=== PATIENT | female | born 1950 | race Caucasian/White ===

== ENCOUNTER → 2019-04-18 06:49 | Outpatient (CLI) | payer MEDICARE, SELFPAY ==
--- NOTE | ~2019-04-18 | DEXA_ITS ---
Bone Density Report Name: Margareth Araiza Age: 69 Sex: Female Ethnicity: White Date of : 1950 Indication: osteopenia; prior fracture; hysterectomy; postmenopausal Referring Provider: Mariya Dale Study: Bone densitometry was performed. Exam Date: April 18, 2019 Accession number: [id number] Bone Density: Region BMD T-score Z-score Classification AP Spine (L1, L3, L4) 1.111 0.5 2.7 Normal Femoral Neck (Left) 0.711 -1.2 0.6 Osteopenia Total Hip (Left) 0.828 -0.9 0.6 Normal Femoral Neck (Right) 0.748 -0.9 0.9 Normal Total Hip (Right) 0.894 -0.4 1.2 Normal Total Hip Mean 0.861 -0.7 0.9 Normal World Health Organization criteria for BMD impression classify patients as: Normal (T-score at or above -1.0), Osteopenia (T-score between -1.0 and -2.5), or Osteoporosis (T-score at or below -2.5). 10-year Fracture Risk(1): Major Osteoporotic Fracture 14% Hip Fracture 1.6% Reported Risk Factors: [place] (), Neck BMD=0.711, BMI=36.2, previous fracture (1) FRAX(R) Version 3.08. Fracture probability calculated for an untreated patient. Fracture probability may be lower if the patient has received treatment. Previous Exams: Region Exam Age BMD T-score BMD Change BMD Change Date g/cm2 vs Baseline vs Previous AP Spine(L1, L3, L4) 04/18/2019 69 1.111 0.5 0.065 0.065 12/03/2015 65 1.046 -0.1 Total Hip(Left) 04/18/2019 69 0.828 -0.9 0.015 0.015 12/03/2015 65 0.813 -1.1 Total Hip(Right) 04/18/2019 69 0.894 -0.4 -0.010 -0.010 12/03/2015 65 0.904 -0.3 *Denotes significance at 95% confidence level, LSC for AP Spine = 0.022 g/cm2, LSC for Total Hip = 0.027 g/cm2 Clinical Information Provided by Patient: Has had a low trauma fracture Has used the following medications: Vitamin D, Calcium Has the following medical conditions: Hysterectomy Patient maximum height was 64 Menopause Age: 49 Drinks caffeinated beverages Onset of menses at age 8 Number of children 4 Impression: The patient has low bone mass, based on the Left Femoral Neck T-score. The patient has an estimated ten-year risk of hip fracture of 1.6% and an estimated ten-year risk of major fracture of 14%, based on the WHO FRAX algorithm. The patient has risk factors, including: previous fracture. No significant bone loss was observed. Discussion: BONE DENSITY IS LOW AT ONE OR MORE SKELETAL SITES. This
--- NOTE | ~2019-04-18 | MM_ITS ---
EXAMINATION: MM screening [facility] BI w yin HISTORY: Screening mammogram TECHNIQUE: Craniocaudal and mediolateral oblique 3-D tomosynthesis images were obtained and synthetic 2-D images were generated. CAD analysis was submitted and interpreted. COMPARISON: 03/10/2018, 12/25/2016, 12/03/2015 bilateral digital screening mammogram examinations BREAST PARENCHYMAL COMPOSITION: There are scattered areas of fibroglandular density. FINDINGS: Mild fibroglandular asymmetry. Benign stable intramammary axillary tail lymph node on the l eft. There is no evidence of suspicious mass, calcification, or architectural distortion to suggest m alignancy in either breast. There has been no suspicious interval change. IMPRESSION: 1. No mammographic evidence of malignancy. 2. Recommend routine screening mammography in one year. BI-RADS Category 2: Benign finding(s). Reviewed, dictated and finalized at location A.
== END ==
PROVIDERS: PCP Family Medicine; Visit Provider Physician Assistant
DX: Z12.31 Encounter for screening mammogram for malignant neoplasm of breast (principal); Z78.0 Asymptomatic menopausal state; M85.852 Other specified disorders of bone density and structure, left thigh
CPT/HCPCS: 77063; 77067; 77080

== ENCOUNTER → 2020-04-04 12:48 | Outpatient (CLI) | payer MEDICARE, SELFPAY ==
--- NOTE | ~2020-04-04 | XR_ITS ---
XR foot RT 2V DATE: 04/04/2020 13:05 INDICATION: Right foot pain TECHNIQUE: AP and lateral views COMPARISON: None FINDINGS: There is diffuse osteopenia. There is hallux valgus and bunion deformity. There is osteoarthritis at the first metatarsophalangeal joint. Plantar calcaneal enthesopathy. There is some soft tissue calcification at the plantar aponeurosis be neath the calcaneal tuberosity. No fracture or dislocation, periosteal reaction or bone destruction. IMPRESSION: Osteopenia Hallux valgus and bunion deformity Osteoarthritis at first metatarsophalangeal joint Plantar calcaneal soft tissue calcification and enthesopathy Reviewed, dictated and finalized at location A. NG CUTTER
== END ==
PROVIDERS: PCP Family Medicine; Visit Provider Family Medicine
DX: M79.671 Pain in right foot (principal); G89.29 Other chronic pain; M85.871 Other specified disorders of bone density and structure, right ankle and foot; M19.071 Primary osteoarthritis, right ankle and foot; M77.31 Calcaneal spur, right foot
CPT/HCPCS: 73620

== ENCOUNTER → 2020-05-22 11:14 | Outpatient (CLI) | payer MEDICARE, SELFPAY ==
--- NOTE | ~2020-05-22 | MM_ITS ---
EXAMINATION: MM screening [facility] BI w yin HISTORY: Screening TECHNIQUE: Craniocaudal and mediolateral oblique 3-D tomosynthesis images were obtained and synthetic 2-D images were generated. CAD analysis was submitted and interpreted. COMPARISON: Comparison to multiple prior studies sequentially, with oldest reviewed study dated 11/09. BREAST PARENCHYMAL COMPOSITION: There are scattered areas of fibroglandular density. FINDINGS: There is no evidence of suspicious mass, calcification, or architectural distortion to sugg est malignancy in either breast. There has been no suspicious interval change. IMPRESSION: 1. No mammographic evidence of malignancy. 2. Recommend routine screening mammography in one year. BI-RADS Category 1: Negative Reviewed, dictated and finalized at location A.
== END ==
PROVIDERS: PCP Family Medicine; Visit Provider Family Medicine
DX: Z12.31 Encounter for screening mammogram for malignant neoplasm of breast (principal)
CPT/HCPCS: 77063; 77067

== ENCOUNTER → 2020-06-25 03:02 | Outpatient (CLI) | payer MEDICARE, SELFPAY ==
[2020-06-25 20:06] LABS: SARS-CoV-2 RNA PCR Negative
== END ==
PROVIDERS: PCP Family Medicine; Visit Provider Internal Medicine Gastroenterology
DX: Z01.812 Encounter for preprocedural laboratory examination (principal); Z20.822 Contact with and (suspected) exposure to COVID-19
CPT/HCPCS: C9803; U0003; U0005

== ENCOUNTER 2020-06-28 02:36 | Day surgery (SDC) | payer MEDICARE, SELFPAY ==
[2020-06-19 10:00] VITALS: BMI 32.5
[2020-06-28 06:26] VITALS: BP 136/80; PULSE 71; RESP 16; TEMP 36.6; O2SAT 95; BMI 33.5
[2020-06-28] MEDS: LACTATED RINGERS 1,000 ML 150 ML IV CONT (06:34)
--- NOTE | 2020-06-28 07:16 | WPDANESEPPF ---
Anes - Initial Pre Proc Eval Procedure: Operation Date: 06/28/20 07:30 Proposed Procedures p Screening Colonoscopy - Edi Soriano MD Date/Time: 06/28/20 07:16 Surgeon: Edi Soriano MD Pre Op Diagnosis: hx of colon ca Patient Data Age: 70 Gender: F Height: 5 ft 4 in Weight: 88.7 kg Last Vital Signs Temp 97.9 F 06/28/20 06:26 Pulse 71 06/28/20 06:26 Resp 16 06/28/20 06:26 BP 136/80 06/28/20 06:26 Pulse Ox 95 06/28/20 06:26 Allergies Allergy/AdvReac Type Severity Reaction Status Date / Time No Known Allergies Allergy Verified 06/28/20 06:25 Home Medications Medication Instructions Recorded Confirmed Type omega-3 fatty acids 1,000 mg 2,000 mg PO DAILY cap 04/14/19 06/19/20 History capsule pravastatin 10 mg tablet See Rx Instructions .ROUTE 05/20/20 06/19/20 Rx .COMPLEX #90 tablet calcium carbonate-vitamin D2 1 tablet PO DAILY 06/19/20 06/19/20 History [Calcium + Vitamin D] glucosamine sulfate [Glucosamine] 500 mg PO DAILY 06/19/20 06/19/20 History naproxen sodium 440 mg PO BID PRN 06/19/20 06/19/20 History Patient hx anesthesia problems: none Family hx anesthesia problems: none PMFSH Past Medical History Medical History Hepatitis C antibody test negative (05/19/16) Family History Family History Mother Diabetes mellitus Hypertension Family history of elevated blood lipids Carcinoma of colon Family history of coronary artery disease Father Hypertension Family history of elevated blood lipids Family history of coronary artery disease Acute myocardial infarction Sibling Family history of thyroid disease Family history of malignant neoplasm Social History Social History Smoking packs per day: 0.5 Smoking cigarettes per day: 10.0 Years smoked: 4 Smoking pack-years: 2.00 Second hand tobacco smoke exposure: No Smoking end date: 02/09/72 Alcohol intake: current Drinks per week: 3 Substance use: never Substance use type: does not use Living arrangements: with family Gender identity (if verbalized by the patient): Female Spiritual care concerns: No Anes - Eval Final PreProcedure Day of Procedure 06/28/20 07:16 Patient weight: obese Heart: regular rate and rhythm Lungs: clear to auscultation Airway: Mallampati scale class II Neurological: alert and oriented Last oral intake: >/= 8 hours ASA classification: II Emergent: no Anesthetic plan: proceed Anesthesia type and monitoring: general GIVS and standard monitoring Informed Consent: The patient's anesthetic plan and its attendant risks and benefits were discussed with the patient/family/POA. Questions were solicited and answers provided to the satisfaction of the patient/family/POA.
--- NOTE | 2020-06-28 07:26 | PM.HPGS ---
History of Present Illness History of Present Illness Consent: Risks, benefits, and alternatives have been discussed and questions answered. Patient agrees to proceed with procedure. Chief complaint: hx of colon ca Narrative: Margareth Araiza is a 70 year old female with last colonoscopy 2015, mother had colon cancer Review of Systems Constitutional: Constitutional: Denies headache(s) and Denies weakness Eyes: Eyes: Denies blurry vision ENT: Reports Normal hearing present, Denies headache(s) and Denies neck pain Cardiovascular: Cardiovascular: Denies chest pain and Denies dyspnea Respiratory: Respiratory: Denies dyspnea Gastrointestinal: Gastrointestinal: Reports no additional gastrointestinal complaints Genitourinary: Genitourinary: Denies dysuria Musculoskeletal: Musculoskeletal: Denies neck pain Integumentary/Breasts: Skin/Breast: Denies dry skin Neurologic: Reports Normal hearing present, Denies headache(s) and Denies weakness Psychiatric: Psychiatric: Denies anxiety Endocrine: Endocrine: Denies change in body appearance Hematologic/Lymphatic: Hematologic/Lymphatic: Denies easy bleeding Allergic/Immunologic: Allergic/Immunologic: Denies urticaria PMF Past Medical History Medical History (Updated 06/28/20 @ 07:26 by Edi Soriano MD) Family history of colon cancer in mother Hepatitis C antibody test negative (05/19/16) Family History Family History (Reviewed 06/13/20 @ 11:51 by Rachael Beard [facility]) Mother Diabetes mellitus Hypertension Family history of elevated blood lipids Carcinoma of colon Family history of coronary artery disease Father Hypertension Family history of elevated blood lipids Family history of coronary artery disease Acute myocardial infarction Sibling Family history of thyroid disease Family history of malignant neoplasm Social History Social History (Reviewed 06/13/20 @ 11:51 by Rachael Beard [facility]) Smoking packs per day: 0.5 Smoking cigarettes per day: 10.0 Years smoked: 4 Smoking pack-years: 2.00 Second hand tobacco smoke exposure: No Smoking end date: 02/09/72 Alcohol intake: current Drinks per week: 3 Substance use: never Substance use type: does not use Living arrangements: with family Gender identity (if verbalized by the patient): Female Spiritual care concerns: No Meds Home Medications and Allergies Home Medications Medication Instructions Recorded Confirmed Type omega-3 fatty acids 1,000 mg 2,000 mg PO DAILY cap 04/14/19 06/19/20 History capsule pravastatin 10 mg tablet See Rx Instructions .ROUTE 05/20/20 06/19/20 Rx .COMPLEX #90 tablet calcium carbonate-vitamin D2 1 tablet PO DAILY 06/19/20 06/19/20 History [Calcium + Vitamin D] glucosamine sulfate [Glucosamine] 500 mg PO DAILY 06/19/20 06/19/20 History naproxen sodium 440 mg PO BID PRN 06/19/20 06/19/20 History Allergies Allergy/AdvReac Type Severity Reaction Status Date / Time No Known Allergies Allergy Verified 06/28/20 06:25 Vital Signs Vital Signs - 24 hr 06/28/20 06:26 Temperature 97.9 F Pulse Rate 71 Respiratory Rate 16 Blood Pressure 136/80 Pulse Oximetry 95 Exam Const: General: comfortable and no acute distress HENMT: General nose exam: Normal nares present Eyes: General: appearance normal, both eyes and all related structures Neck: Neck: no JVD Resp: Auscultation: clear to auscultation bilaterally Cardio: Rate: regular rate Rhythm: regular rhythm GI: Inspection: non-distended GI Palp: Yes Soft to palpation Skin: General skin exam: normal color Neuro: General: gait normal Speech: normal speech Extrem: General: normal to inspection Psych: Mental Status: mental status grossly normal Assessment and Plan Assessment and plan (1) Family history of colon cancer in mother: Code(s): Z80.0 - Family history of malignant neoplasm of digestive organs Status: Acute
[2020-06-28 07:47] VITALS: BP 96/50; PULSE 54; RESP 16; O2SAT 95
[2020-06-28 07:57] VITALS: BP 99/69; PULSE 58; RESP 18; O2SAT 96
[2020-06-28 08:07] VITALS: BP 122/68; PULSE 53; RESP 16; O2SAT 96
== END 2020-06-28 08:25 | disposition home or self-care (01) ==
PROVIDERS: PCP Family Medicine; Visit Provider Internal Medicine Gastroenterology
PROC: 0DJD8ZZ Inspection of Lower Intestinal Tract, Via Natural or Artificial Opening Endoscopic (ICD-10-PCS; CPT 45378; principal; 2020-06-28 07:30)
DX: Z12.11 Encounter for screening for malignant neoplasm of colon (principal); K57.30 Diverticulosis of large intestine without perforation or abscess without bleeding; K64.8 Other hemorrhoids; Z80.0 Family history of malignant neoplasm of digestive organs; Z87.891 Personal history of nicotine dependence; E66.9 Obesity, unspecified; Z68.33 Body mass index [BMI] 33.0-33.9, adult
CPT/HCPCS: G0105; C9803; J2001; J2704; J7120; U0003; U0005

== ENCOUNTER → 2021-04-24 09:06 | Outpatient (CLI) | payer MEDICARE, SELFPAY ==
--- NOTE | ~2021-04-24 | XR_ITS ---
EXAMINATION: XR finger 2nd RT min 2V DATE: 04/24/2021 09:26 INDICATION: Pain at the right second digit TECHNIQUE: Dorsal palmar, lateral and 2 oblique views of the right second digit were obtained COMPARISON: None FINDINGS: Bone alignment is normal. No fracture. Polyarticular osteoarthritis, moderate severity at the right s econd proximal and distal interphalangeal joints, both with prominent heterotopic ossicles at the yesika siri/ulnar sides of the joint spaces and with tiny heterotopic ossicle at the radial aspect of the dis tylor interphalangeal joint line. Additional mild osteoarthritis at the triscaphe, first carpometacarpa l and a few of the remaining visualized interphalangeal joints. IMPRESSION: 1. Polyarticular osteoarthritis, moderate severity at the right second proximal and distal interphala ngeal joints Reviewed, dictated and finalized at location A. IMPRESSION: 1. Polyarticular osteoarthritis, moderate severity at the right second proximal and distal interphalangeal joints
== END ==
PROVIDERS: PCP Family Medicine; Visit Provider Physician Assistant
DX: M19.041 Primary osteoarthritis, right hand (principal)
CPT/HCPCS: 73140

== ENCOUNTER → 2021-06-18 13:44 | Outpatient (CLI) | payer MEDICARE, SELFPAY ==
--- NOTE | ~2021-06-18 | MM_ITS ---
EXAMINATION: MM screening [facility] BI w yin HISTORY: Screening TECHNIQUE: Craniocaudal and mediolateral oblique 3-D tomosynthesis images were obtained and synthetic 2-D images were generated. CAD analysis was submitted and interpreted. COMPARISON: Comparison to multiple prior studies sequentially, with oldest reviewed study dated 11/09. BREAST PARENCHYMAL COMPOSITION: There are scattered areas of fibroglandular density. FINDINGS: There is no evidence of suspicious mass, calcification, or architectural distortion to sugg est malignancy in either breast. There has been no suspicious interval change. IMPRESSION: 1. No mammographic evidence of malignancy. 2. Recommend routine screening mammography in one year. BI-RADS Category 1: Negative Reviewed, dictated and finalized at location A.
--- NOTE | ~2021-06-18 | DEXA_ITS ---
Bone Density Report Name: CASPER OAKLEY Age: 71 Sex: Female Ethnicity: White Date of : 1950 Indication: postmenopausal; screening for osteoporosis; height loss; prior fracture; hysterectomy; Referring Provider: Mariya Dale Study: Bone densitometry was performed. Exam Date: June 18, 2021 Accession number: [id number] Bone Density: Region BMD T-score Z-score Classification AP Spine (L1, L3, L4) 1.141 0.8 3.1 Normal Femoral Neck (Left) 0.678 -1.5 0.4 Osteopenia Total Hip (Left) 0.835 -0.9 0.8 Normal Femoral Neck (Right) 0.761 -0.8 1.2 Normal Total Hip (Right) 0.884 -0.5 1.2 Normal Total Hip Mean 0.860 -0.7 1.0 Normal World Health Organization criteria for BMD impression classify patients as: Normal (T-score at or above -1.0), Osteopenia (T-score between -1.0 and -2.5), or Osteoporosis (T-score at or below -2.5). 10-year Fracture Risk(1): Major Osteoporotic Fracture 16% Hip Fracture 2.5% Reported Risk Factors: [place] (), Neck BMD=0.678, BMI=35.4, previous fracture (1) FRAX(R) Version 3.08. Fracture probability calculated for an untreated patient. Fracture probability may be lower if the patient has received treatment. Previous Exams: Region Exam Age BMD T-score BMD Change BMD Change Date g/cm2 vs Baseline vs Previous AP Spine(L1, L3, L4) 06/18/2021 71 1.141 0.8 0.095* 0.030 04/18/2019 69 1.111 0.5 0.065 0.065 12/03/2015 65 1.046 -0.1 Total Hip(Left) 06/18/2021 71 0.835 -0.9 0.021 0.007 04/18/2019 69 0.828 -0.9 0.015 0.015 12/03/2015 65 0.813 -1.1 Total Hip(Right) 06/18/2021 71 0.884 -0.5 -0.019 -0.009 04/18/2019 69 0.894 -0.4 -0.010 -0.010 12/03/2015 65 0.904 -0.3 *Denotes significance at 95% confidence level, LSC for AP Spine = 0.022 g/cm2, LSC for Total Hip = 0.027 g/cm2 Clinical Information Provided by Patient: Has had a low trauma fracture Has used the following medications: Vitamin D, Calcium Has the following medical conditions: Hysterectomy Patient maximum height was 64 Menopause Age: 49 No regular weight bearing exercise Drinks caffeinated beverages Onset of menses at age 8 Number of children 4 Impression: The patient has low bone mass, based on the Left Femoral Neck T-score. The patient has an estimated ten-year risk of hip fracture of 2.5% an
== END ==
PROVIDERS: PCP Family Medicine; Visit Provider Physician Assistant
DX: Z12.31 Encounter for screening mammogram for malignant neoplasm of breast (principal); Z78.0 Asymptomatic menopausal state; M85.852 Other specified disorders of bone density and structure, left thigh
CPT/HCPCS: 77063; 77067; 77080

== ENCOUNTER → 2022-09-10 10:47 | Outpatient (CLI) | payer MEDICARE, SELFPAY ==
--- NOTE | ~2022-09-10 | MM_ITS ---
EXAMINATION: MM screening [facility] BI w yin HISTORY: Screening mammogram TECHNIQUE: Craniocaudal and mediolateral oblique 3-D tomosynthesis images were obtained and synthetic 2-D images were generated. CAD analysis was submitted and interpreted. COMPARISON: 06/18/2021, 05/22/2020, 04/18/2019 bilateral screening mammogram examinations BREAST PARENCHYMAL COMPOSITION: The breasts are almost entirely fatty. FINDINGS: There is no evidence of suspicious mass, calcification, or architectural distortion to sugg est malignancy in either breast. There has been no suspicious interval change. IMPRESSION: 1. No mammographic evidence of malignancy. 2. Recommend routine screening mammography in one year. BI-RADS Category 1: Negative Reviewed, dictated and finalized at location A.
== END ==
PROVIDERS: PCP Family Medicine; Visit Provider Family Medicine
DX: Z12.31 Encounter for screening mammogram for malignant neoplasm of breast (principal)
CPT/HCPCS: 77063; 77067

== ENCOUNTER 2023-12-28 11:49 | Outpatient (CLI) | payer MEDICARE, SELFPAY ==
--- NOTE | ~2023-12-28 | DEXA_ITS ---
Bone Density Report Name: CASPER OAKLEY Age: 73 Sex: Female Ethnicity: White Date of : 1950 Indication: postmenopausal; screening for osteoporosis; hysterectomy; Referring Provider: Pia Thomas Study: Bone densitometry was performed. Exam Date: December 28, 2023 Accession number: [id number] Bone Density: Region BMD T-score Z-score Classification AP Spine(L1, L2, L4) 1.153 1.1 3.5 Normal Femoral Neck (Left) 0.665 -1.7 0.5 Osteopenia Total Hip (Left) 0.831 -0.9 0.9 Normal Femoral Neck (Right) 0.710 -1.3 0.9 Osteopenia Total Hip (Right) 0.860 -0.7 1.2 Normal Femoral Neck Mean 0.688 -1.5 0.7 Osteopenia Total Hip Mean 0.846 -0.8 1.0 Normal World Health Organization criteria for BMD impression classify patients as: Normal (T-score at or above -1.0), Osteopenia (T-score between -1.0 and -2.5), or Osteoporosis (T-score at or below -2.5). 10-year Fracture Risk(1): Major Osteoporotic Fracture 11% Hip Fracture 2.3% Reported Risk Factors: [place] (), Neck BMD=0.665, BMI=34.1 (1) FRAX(R) Version 3.08. Fracture probability calculated for an untreated patient. Fracture probability may be lower if the patient has received treatment. Clinical Information Provided by Patient: Has used the following medications: Vitamin D, Calcium Has the following medical conditions: Hysterectomy Patient maximum height was 64 Menopause Age: 48 Drinks caffeinated beverages Onset of menses at age 11 Number of children 4 Impression: The patient has low bone mass, based on the Left Femoral Neck T-score. Discussion: BONE DENSITY IS LOW AT ONE OR MORE SKELETAL SITES. This patient's lowest T-score is low at one or more skeletal sites. It meets the World Health Organization's (WHO) criteria for ?low bone mass? (T-score between -1.0 and -2.5). The patient's 10-year risk of fracture as calculated by FRAX is less than the threshold where pharmacological therapy is recommended by the National Osteoporosis Foundation (NOF). However, all treatment decisions require clinical judgment and consideration of individual patient factors, including patient preferences, comorbidities, previous drug use, risk factors not captured in the FRAX model (e.g., frailty, falls, vitamin D deficiency, increased bone turnover, interval significant decline in bone density) and possible under or overestimation of fracture risk by FRAX. The patient should follow a healthful lifestyle (good nutrition with adequate calcium and vitamin D, and appropriate weight-bearing exercise). Follow-Up: Consider repeating this study in 2 to 3 years to reassess this patient's status, or sooner if there is some new clinical indication. Reported by: ANGEL on 12/28/2023 12:20:00 PM. Reviewed, dictated and finalized at location A.
--- NOTE | ~2023-12-28 | MM_ITS ---
EXAMINATION: MM screening [facility] BI w yin HISTORY: Screening mammogram TECHNIQUE: Craniocaudal and mediolateral oblique 3-D tomosynthesis images were obtained and synthetic 2-D images were generated. CAD analysis was submitted and interpreted. COMPARISON: 09/10/2022, 06/18/2021, 05/22/2020 BREAST PARENCHYMAL COMPOSITION:Not Dense. The breasts are almost entirely fatty FINDINGS: No suspicious mass, calcification, or architectural distortion are identified in either pb ast to suggest malignancy. There has been no suspicious interval change. IMPRESSION: No mammographic evidence of malignancy. Recommend routine screening mammography in one year. BI-RADS Category 1: Negative Reviewed, dictated and finalized at location . [employer]
== END 2023-12-28 11:50 | disposition home or self-care (01) ==
PROVIDERS: PCP Family Medicine; Visit Provider Nurse Practitioner
DX: Z12.31 Encounter for screening mammogram for malignant neoplasm of breast (principal); Z78.0 Asymptomatic menopausal state; M85.89 Other specified disorders of bone density and structure, multiple sites
CPT/HCPCS: 77063; 77067; 77080

== ENCOUNTER 2024-03-14 12:49 | Outpatient (CLI) | payer MEDICARE, SELFPAY ==
--- NOTE | ~2024-03-14 | XR_ITS ---
XR knee LT 3V 03/14/2024 12:59 Indication: Left knee pain Procedure: 3 views left knee Comparison: No prior studies for comparison. Findings: There is moderate-severe tricompartment osteoarthritis. There are loose bodies posterior to the joint space. No acute fracture. No joint effusion. Impression: 1: Moderate-severe osteoarthritis of the left knee. Reviewed, dictated and finalized at location B. RER SAWMILL Impression: 1: Moderate-severe osteoarthritis of the left knee.
== END 2024-03-14 12:50 | disposition home or self-care (01) ==
LOC: MICIMG 12:50
PROVIDERS: PCP Family Medicine; Visit Provider Nurse Practitioner
DX: M17.12 Unilateral primary osteoarthritis, left knee (principal)
CPT/HCPCS: 73562

== ENCOUNTER 2024-12-29 07:20 | Outpatient (CLI) | payer MEDICARE, SELFPAY ==
--- NOTE | ~2024-12-29 | MM_ITS ---
EXAMINATION: MM screening ashley BI w yin HISTORY: Screening TECHNIQUE: Craniocaudal and mediolateral oblique 3-D tomosynthesis images were obtained and synthetic 2-D images were generated. CAD analysis was submitted and interpreted. COMPARISON: Comparison to multiple prior studies sequentially, with oldest reviewed study dated 03/10/2018. BREAST PARENCHYMAL COMPOSITION: Not Dense: The breasts are almost entirely fatty. FINDINGS: There is no evidence of suspicious mass, calcification, or architectural distortion to suggest malignancy in either breast. There has been no suspicious interval change. IMPRESSION: 1. No mammographic evidence of malignancy. 2. Recommend routine screening mammography in one year. BI-RADS Category 1: Negative Reviewed, dictated and finalized at location [facility]
--- OUTSIDE RECORDS SUMMARY | 2024-12-29 07:22 | XMS_ITS | Encounter Summary ---
Author Organization [facility] Address [address] [place] [address] Care Team Providers Care Kiss Mixer Name Role Phone Magdalena Najera MD Primary Care Provider [phone] Encounter Details Date Type Department Care Team (Late st Contact Info) Description 08/19/2007 Outpatient Historical [facility] Magdalena Najera MD [address] [place] [address] Other Screening Mammogram Social History Tobacco Use Types Packs/Day Years Used Date Smoking Tobacco: Never Assessed Comments Unknown Sex and Gender Information Value Date Recorded Sex Assigned at Not on file Legal Sex Female 4:53 AM [employer] Gender Identity Not on file Sexual Orientation Not on file documented as of this encounter Plan of Treatment Not on file documented as of this encounter Procedures Procedure Name Priority Date/Time Associated Diagnosis Comments MAMMO SCREENING BILAT Routine 08/19/2007 3:57 PM CDT documented in this encounter Results * MAMMO SCREENING BILAT (08/19/2007 3:57 PM CDT) Anatomical Region Laterality Modality Breast Bilateral Other 08/19/2007 3:57 PM CDT Narrative 08/22/2007 1:53 PM CDT [facility] [address], [place] [address] Admit Date: 08/19/2007 CASPER OAKLEY Sex: F Admit Prov: MAGDALENA NAJERA Date: 1950 Primary Care Prov: MAGDALENA NAJERA CMRN: [id number] [id number] Ordering Prov: MAGDALENA NAJERA Accession Number: [id number] Interpretation BILATERAL SCREENING MAMMOGRAMS 08/19/07 History: Annual screening study. Findings: The parenchyma is predominantly fatty bilaterally. There is no mass, malignant calcification, lymphadenopathy or other sign of malignancy. No change since 07/2005. Summary: No mammographic evidence of malignancy. Overall assessment: BIRADS category 1 - Negative Assessment BIRADS: 1-Negative Recommendation: Normal interval follow-up Dictated by: SHAHEEN SARMIENTO Electronically signed by: SHAHEEN SARMIENTO 08/22/2007 13:53 Transcribed: 08/22/2007 13:53 AMK Procedure Note Shaheen Sarmiento MD - 08/22/[address] [address] Admit Date: 08/19/2007 CASPER OAKLEY Sex: F Admit Prov: MAGDALENA NAJERA Date: 1950 Primary Care Prov: MAGDALENA NAJERA CMRN: [id number] [id number] Ordering Prov: MAGDALENA NAJERA Interpretation BILATERAL SCREENING MAMMOGRAMS 08/19/07 History: Annual screening study. Findings: The parenchyma is predominantly fatty bilaterally. Thereis no mass, malignant calcification, lymphadenopathy or other sign ofmalignancy. No change since 07/2005. Summary: No mammographic evidence of malignancy. Overall assessment: BIRADS category 1 - Negative Assessment BIRADS: 1-Negative Recommendation: Normal interval follow-up Dictated by: SHAHEEN SARMIENTO Electronically signed by: SHAHEEN SARMIENTO 08/22/2007 13:53 Transcribed: 08/22/2007 13:53 AMK Magdalena Najera MD MAMMO ORDERABLES Final Result documented in this encounter Visit Diagnoses Diagnosis Other screening mammogram documented in this encounter Care Teams Kiss Mixer Relationship Specialty Start Date End Date Magdalena Najera MD [address] [place] [id number] PCP - General 06/15/00 documented as of this encounter
--- OUTSIDE RECORDS SUMMARY | 2024-12-29 07:22 | XMS_ITS | Clinical Summary ---
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 Gender Identity Not on file Sexual Orientation Not on file Occupation Industry Job Start Date Job End Date Not on file Not on file Not on file Not on file Plan of Treatment Health Maintenance Due Date Last Done Comments DTAP/TDAP/TD VACCINES (1 - Tdap) 1967 PNEUMOCOCCAL VACCINE 50+ YEARS (1 of 1 - PCV) 03/05/18 99 ZOSTER VACCINE (1 of 2) 1998 OSTEOPOROSIS SCREENING 2013 RSV VACCINE (60+ or ) (1 - 1-dose 75+ series) 2023 INFLUENZA VACCINE (#1) 2024 Insurance [employer] BLUE ACCESS/TRUE BLUE PPO Care Teams Scientific Research Associate Relationship Specialty Start Date End Date Matthew Marie MD [address] [place] [address] PCP - General 06/15/00
--- OUTSIDE RECORDS SUMMARY | 2024-12-29 07:22 | XMS_ITS | Encounter Summary ---
Author Organization [facility] Address 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
--- OUTSIDE RECORDS SUMMARY | 2024-12-29 07:22 | XMS_ITS | Encounter Summary ---
Author Organization [facility] Address [address] [place] [address] Care Team Providers Care Drug Discovery Informatics Specialist Name Role Phone Matthew Marie MD Primary Care Provider [phone] Encounter Details Date Type Department Care Team (Late st Contact Info) Description 07/21/2005 Outpatient Historical HIS [facility] Matthew Giron MD [address] [place] [address] Other Screening Mammogram (Primary Dx) Social History Tobacco Use Types Packs/Day Years Used Date Smoking Tobacco: Never Assessed Comments Unknown Sex and Gender Information Value Date Recorded Sex Assigned at Not on file 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
--- OUTSIDE RECORDS SUMMARY | 2024-12-29 07:22 | XMS_ITS | Encounter Summary ---
Author Organization [facility] Address 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 Gender Identity Not on file Sexual Orientation Not on file documented as of this encounter Plan of Treatment Not on file documented as of this encounter Procedures Procedure Name Priority Date/Time Associated Diagnosis Comments MAMMO SCREENING BILAT Routine 08/22/2008 8:44 AM CDT documented in this encounter Results * MAMMO SCREENING BILAT (08/22/2008 8:44 AM CDT) Anatomical Region Laterality Modality Breast Bilateral Other 08/22/2008 8:44 AM CDT Narrative 08/24/2008 8:09 AM CDT [facility] [address], [place] [address] Admit Date: 08/22/2008 CAS[place] OAKLEY Sex: F Admit Prov: MAGDALENA NAJERA Date: 1950 Primary Care Prov: MAGDALENA NAJERA CMRN: [id number] [id number] Ordering Prov: MAGDALENA NAJERA Accession Number: [id number] Interpretation BILATERAL SCREENING MAMMOGRAM 08/22/08 Reason for this examination: Annual screening study. Findings: The parenchyma is predominantly fatty bilaterally. There is no mass, malignant calcification, lymphadenopathy or other sign of malignancy. No change since 07/2005. IMPRESSION: No mammographic evidence of malignancy. Overall assessment: BIRADS category 1 - Negative Assessment BIRADS: 1-Negative Recommendation: Normal interval follow-up Dictated by: SHAHEEN SARMIENTO Electronically signed by: SHAHEEN SARMIENTO 08/24/2008 08:09 Transcribed: 08/23/2008 20:33 AMK Procedure Note Shaheen Sarmiento MD - 08/24/[address] [address] Admit Date: 08/22/2008 CASPER OAKLEY Sex: F Admit Prov: MAGDALENA NAJERA Date: 1950 Primary Care Prov: MAGDALENA NAJERA CMRN: [id number] [id number] [facility] Ordering Prov: MAGDALENA NAJERA Interpretation BILATERAL SCREENING MAMMOGRAM 08/22/08 Reason for this examination: Annual screening study. Findings: The parenchyma is predominantly fatty bilaterally. Thereis no mass, malignant calcification, lymphadenopathy or other sign ofmalignancy. No change since 07/2005. IMPRESSION: No mammographic evidence of malignancy. Overall assessment: BIRADS category 1 - Negative Assessment BIRADS: 1-Negative Recommendation: Normal interval follow-up Dictated by: SHAHEEN SARMIENTO Electronically signed by: SHAHEEN SARMIENTO 08/24/2008 08:09 Transcribed: 08/23/2008 20:33 AMK Magdlaena Najera MD MAMMO ORDERABLES Final Result documented in this encounter Visit Diagnoses Diagnosis Other screening mammogram documented in this encounter Care Teams Clerk Analyst Relationship Specialty Start Date End Date Magdalena Najera MD [address] [place] [id number] PCP - General 06/15/00 documented as of this encounter
--- OUTSIDE RECORDS SUMMARY | 2024-12-29 07:22 | XMS_ITS | Encounter Summary ---
Author Organization [facility] Address 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
--- OUTSIDE RECORDS SUMMARY | 2024-12-29 07:22 | XMS_ITS | Encounter Summary ---
Author Organization [facility] Address 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
== END 2024-12-29 07:21 | disposition home or self-care (01) ==
LOC: CHSIMG 07:21
PROVIDERS: PCP Nurse Practitioner; Visit Provider Nurse Practitioner
DX: Z12.31 Encounter for screening mammogram for malignant neoplasm of breast (principal)
CPT/HCPCS: 77063; 77067